=== PATIENT | male | born 1955 | race Caucasian/White ===

== ENCOUNTER 2016-10-16 10:52 | Emergency (ER) | payer SELFPAY ==
[~2016-10-16] VITALS: Wt 127.0 kg
[~2016-10-16 10:52] MED LIST: ALBUTEROL0.09 MG/A2 INH; ASPIRIN81 M1 PO; AUGMENTIN 875 M1 TA1 PO; AUGMENTIN XR1000 M1 PO; BACTRIM DS 8001 TA1 PO; CEFADROXIL500 M1 PO; CEPHALEXIN500 M1 PO; CEPHALEXIN500 MG PO; CIPROFLOXACIN500 MG PO; DIOVAN HCT 25 M1 TAB PO; DIOVAN160 M1 PO; DIOVAN320 MG PO; FLOMAX0.4 MG PO; HYDROCODONE BIT1 T11 PO; KEFLEX250 MG PO; KEFLEX500 MG PO; LEVAQUIN750 MG PO; METOPROLOL50 MG PO; NAPROSYN500 MG PO; NEXIUM40 MG PO; OMEPRAZOLE; OMEPRAZOLE20 MG PO; OMNICEF300 MG PO; PERCOCET 325 MG1 TA5 PO; PERCOCET 325 MG1 TA7 PO; PREDNICOT20 MG PO; PRILOSEC OTC20 MG PO; SIMVASTATIN80 MG PO; ULTRAM50 MG PO; VIBRAMYCIN100 MG PO; VICO10300 PO
[2016-10-16 11:17] LABS: BILIRUBIN NEGATIVE (NEGATIVE); BLOOD NEGATIVE (NEGATIVE); CLARITY CLEAR (CLEAR); COLOR YELLOW (YELLOW); GLUCOSE NEGATIVE (NEGATIVE); KETONE NEGATIVE (NEGATIVE); LEUKO ESTERASE NEGATIVE (NEGATIVE); NITRITE NEGATIVE (NEGATIVE); PH 5.5 (5.0-9.0); PROTEIN NEGATIVE (NEGATIVE); UROBILINOGEN 0.2 E.U./dl (0.2-1.0)
[2016-10-16 11:25] LABS: MUCOUS TRACE; URINE REFLEX COMMENT NO (NO); WBC 0-2 wbc/hpf (0-5)
[2016-10-16 11:26] LABS: EPITHELIAL CELLS 0-2
[2016-10-16 11:27] LABS: BASO % 0.3 % (0.0-1.0); EOS # 0.2 10*3/uL (0.0-0.4); EOS % 2.3 % (1.0-4.0); HEMATOCRIT 43.7 % (42.0-52.0); HEMOGLOBIN 13.6 g/dl (14.0-18.0); LYMPH # 1.1 10*3/uL (1.3-4.4); LYMPH % 17.2 % (27.0-41.0); MEAN CELL VOLUME 85.7 fl (80.0-94.0); MEAN CORPUSCULAR HGB 26.7 pg (27.0-31.0); MEAN CORPUSCULAR HGB CONC 31.1 g/dl (33.0-37.0); MEAN PLATELET VOLUME 10.4 fl (9.6-12.3); MONO # 0.6 10*3/uL (0.1-1.0); NEUT # 4.6 10*3/uL (2.3-7.9); NEUT % 70.7 % (47.0-73.0); PLATELET COUNT AUTOMATED 161 10*3/uL (130-400); WHITE BLOOD COUNT 6.5 10*3/uL (4.8-10.8)
[2016-10-16 11:41] LABS: ALBUMIN 3.3 gm/dl (3.1-4.5); ALKALINE PHOSPHATASE 65 U/L (45-117); BILIRUBIN, TOTAL 0.4 mg/dl (0.2-1.0); BUN 29 mg/dl (7-24); CARBON DIOXIDE 28 mmol/L (21-32); CHLORIDE 109 mmol/L (98-107); EST GLOM FILT AFRICAN AMERICAN > 60 ml/min; GLUCOSE 125 mg/dL (65-99); MAGNESIUM 1.9 mg/dL (1.5-2.1); POTASSIUM 4.6 mmol/L (3.5-5.1); SGOT/AST 20 IU/L (3-35); SGPT/ALT 21 U/L (12-78); SODIUM 143 mmol/L (136-145); TOTAL PROTEIN 6.9 gm/dL (6.4-8.2)
[2016-10-16 11:47] LABS: C-REACTIVE PROTEIN 1.23 MG/DL (0-0.3)
[2016-10-16 12:52] VITALS: BP 126/69
[2016-10-16] MEDS ORDERED: Motrin,Rufen800 MG PO (13:22)
[2016-10-16] MEDS ORDERED: FLOMAX0.4 MG PO (13:23)
== END 2016-10-16 13:27 | disposition home or self-care (01) ==
LOC: ED 10:52
PROVIDERS: Emergency Medicine
DX: N20.1 Calculus of ureter (principal); Z95.1 Presence of aortocoronary bypass graft; Z98.890 Other specified postprocedural states; Z90.49 Acquired absence of other specified parts of digestive tract; Z79.82 Long term (current) use of aspirin; Z79.899 Other long term (current) drug therapy; Z88.6 Allergy status to analgesic agent; Z88.5 Allergy status to narcotic agent

== ENCOUNTER → 2017-01-06 | Outpatient (CLI) | payer BC ==
[~2017-01-06] MED LIST changes: +DIOVAN80 M1 PO; +Motrin,Rufen800 MG PO; +SIMVASTATIN40 MG PO; -SIMVASTATIN80 MG PO
--- NOTE | ~2017-01-06 | ST ---
[place], [place] EXERCISE STRESS TEST REPORT [id number] UNIT #: [id number] ROOM: DOCTOR: JAVED FINNEGAN MD BIRTHDATE: [birth year] DOS: 01/06/2017 INDICATION: Chest pain. PROCEDURE: The patient was brought into the stress lab. The procedure was explained with risks, benefits, and alternatives. Lexiscan was injected. The patient tolerated the procedure well. BLOOD PRESSURE RESPONSE: Resting blood pressure 142/90 with ending blood pressure 118/82. ELECTROCARDIOGRAM INTERPRETATION: The resting electrocardiogram showed normal sinus rhythm, heart rate of 68. There is poor R progression, mild nonspecific ST-T changes. Following the infusion, there was no evidence of any significant ST or T-wave changes suggestive of myocardial ischemia. No arrhythmias were noted. SUMMARY: 1. Adequate Lexiscan stress test. 2. Negative Lexiscan stress test for stress induced myocardial ischemia. 3. No arrhythmia were noted. 4. Myoview results will be reported separately. JAVED FINNEGNA MD CM:STRESS:EXERCISE STRESS TEST REPORT [id number] JAVED FINNEGAN MD
== END | disposition home or self-care (01) ==
LOC: CARD 12-09 09:30
DX: I25.10 Atherosclerotic heart disease of native coronary artery without angina pectoris (principal); I11.9 Hypertensive heart disease without heart failure

== ENCOUNTER → 2017-01-26 | Outpatient (CLI) | payer BC | END | disposition home or self-care (01) | LOC: RAD 00:22 | DX: N20.0 Calculus of kidney (principal) ==

== ENCOUNTER 2017-06-03 13:50 | Emergency (ER) | payer BC ==
[~2017-06-03] VITALS: Ht 182.8 cm; Wt 131.5 kg
[2017-06-03 14:25] LABS: HEMATOCRIT 44.8 % (42.0-52.0); HEMOGLOBIN 13.8 g/dl (14.0-18.0); MEAN CELL VOLUME 88.5 fl (80.0-94.0); MEAN CORPUSCULAR HGB 27.3 pg (27.0-31.0); MEAN CORPUSCULAR HGB CONC 30.8 g/dl (33.0-37.0); MEAN PLATELET VOLUME 11.2 fl (9.6-12.3); PLATELET COUNT AUTOMATED 139 10*3/uL (130-400); RED BLOOD COUNT 5.06 10*6/uL (4.50-5.90); WHITE BLOOD COUNT 13.7 10*3/uL (4.8-10.8)
[2017-06-03 14:26] LABS: ABG BASE EXCESS -1.7 mmol/L (-2.0-2.0); ABG HCO3 25.9 mmol/l (22-26); ABG O2 SATURATION 93.4 % (95-97); ARTERIAL BLOOD GAS PCO2 59.4 mmHg (35-45); ARTERIAL BLOOD GAS PH 7.263 (7.35-7.45); ARTERIAL BLOOD GAS PO2 79.1 mmHg (80-90)
[2017-06-03 14:38] LABS: ACT PARTIAL THROMBO TIME 29.5 SECONDS (20.8-31.5); INTERNATIONAL NORM RATIO 1.1 (2.0-3.5)
[2017-06-03 14:41] LABS: ALBUMIN 2.7 gm/dl (3.1-4.5); CREATININE 3.42 mg/dL (0.70-1.30); POTASSIUM 4.4 mmol/L (3.5-5.1); TOTAL PROTEIN 7.5 gm/dL (6.4-8.2)
[2017-06-03 14:45] LABS: TROPONIN I 2.15 ng/ml (<0.045)
[2017-06-03 14:47] LABS: PLATELET SUFFICIENCY LOW (NORMAL); TOTAL CELLS COUNTED 100 #CELLS
[2017-06-03 14:51] LABS: POLYCHROMASIA SLIGHT
[2017-06-03 14:53] LABS: DOHLE BODIES FEW; VACUOLATION OF NEUTROPHILS SLIGHT
[2017-06-03 16:26] LABS: ABG BASE EXCESS -0.1 mmol/L (-2.0-2.0); ABG HCO3 26.5 mmol/l (22-26); ABG O2 SATURATION 94.8 % (95-97); ARTERIAL BLOOD GAS PH 7.3 (7.35-7.45); ARTERIAL BLOOD GAS PO2 83.3 mmHg (80-90)
[2017-06-03 18:07] LABS: ALBUMIN 2.3 gm/dl (3.1-4.5); BILIRUBIN, DIRECT 0.6 mg/dL (0.0-0.2); TOTAL PROTEIN 6.6 gm/dL (6.4-8.2)
[2017-06-03 18:17] LABS: TROPONIN I 3.23 ng/ml (<0.045)
[2017-06-03 18:34] LABS: CREATININE 3.07 mg/dL (0.70-1.30); POTASSIUM 4.4 mmol/L (3.5-5.1)
[2017-06-03 18:49] LABS: BILIRUBIN 2+ (NEGATIVE); BLOOD 2+ (NEGATIVE); CLARITY CLOUDY (CLEAR); COLOR YELLOW (YELLOW); GLUCOSE NEGATIVE (NEGATIVE); KETONE TRACE (NEGATIVE); LEUKO ESTERASE TRACE (NEGATIVE); NITRITE NEGATIVE (NEGATIVE); PH 5.5 (5.0-9.0); SPECIFIC GRAVITY 1.025 (1.005-1.030)
[2017-06-03 18:54] LABS: EPITHELIAL CELLS 0-2
[2017-06-03 18:55] LABS: BACTERIA 2+; CALCIUM OXALATE CRYSTALS TRACE; MUCOUS TRACE
[2017-06-03 19:38] LABS: INTERNATIONAL NORM RATIO 1.1 (2.0-3.5)
[2017-06-03 20:15] VITALS: BP 102/55
== END 2017-06-03 20:00 | disposition short-term general hospital (02) ==
LOC: ED 13:50
PROVIDERS: Emergency Medicine; Emergency Medicine Emergency Medical Services
DX: T39.1X2A Poisoning by 4-Aminophenol derivatives, intentional self-harm, initial encounter (principal); A41.9 Sepsis, unspecified organism; J18.9 Pneumonia, unspecified organism; R65.21 Severe sepsis with septic shock; J96.02 Acute respiratory failure with hypercapnia; I21.4 Non-ST elevation (NSTEMI) myocardial infarction; I50.9 Heart failure, unspecified; R74.0 Nonspecific elevation of levels of transaminase and lactic acid dehydrogenase [LDH]; I47.2 Ventricular tachycardia; N17.9 Acute kidney failure, unspecified; I25.10 Atherosclerotic heart disease of native coronary artery without angina pectoris; Z88.6 Allergy status to analgesic agent; Z79.899 Other long term (current) drug therapy; Z87.891 Personal history of nicotine dependence; Z79.82 Long term (current) use of aspirin; Y92.89 Other specified places as the place of occurrence of the external cause

== ENCOUNTER 2017-09-03 18:52 | Inpatient (IN) | payer SELFPAY ==
[2017-09-03] VITALS (7 sets, daily range): BP systolic 94–131; BP diastolic 50–64
[~2017-09-03] VITALS: Ht 182.9 cm; Wt 136.2 kg
--- NOTE | ~2017-09-03 | PR ---
[place], [place] PROGRESS NOTE NAME: KAREN CORBETT [facility] #: [id number] UNIT #: [id number] ROOM: 403 DOCTOR: VIKKI VILLALOBOS MD BIRTHDATE: [birth year] DOS: 09/05/2017 SUBJECTIVE: The patient was seen today at his bedside, 09/05/2017, for followup of a presyncopal episode. He is a 61-year-old man with a history of coronary artery disease and previous bypass surgery along with morbid obesity. He was recently hospitalized at the [facility] [place] in [place], [place] in May 2017 with pneumonia and acute heart failure. He has chronic ejection fraction was about 55%, but in the hospital it was noted to be about 35-40%. A subsequent stress test showed an inferoseptal myocardial infarction without ischemia. This was consistent with his known anatomy. It was felt that he should be treated medically. Since then, he had been doing well until this current presentation. He felt lightheaded after a meal and did note some palpitations. He was brought into the hospital where he did have a short run of wide complex tachycardia. We were asked to see him. He ruled out for myocardial infarction. An echocardiogram showed that his ejection fraction had improved to about 55% which is at his baseline. He still has stage 2 diastolic relaxation abnormalities, which are chronic. PHYSICAL EXAMINATION: VITAL SIGNS: Today, pulse is 69 and regular, blood pressure is 122/68. He is afebrile. He weighs 136.2 kg and has a body mass index of 40.7. HEENT: Normocephalic and atraumatic. Extraocular muscles are intact. Sclerae are clear. Pupils are equal, round and react to light. The oral mucosa is moist. Tongue is midline. NECK: Supple. He has no jugular distention. Carotids are full. I heard no bruits. He had no neck or supraclavicular masses. LUNGS: Respirations were unlabored. His chest was clear to auscultation and percussion. HEART: Had a regular rhythm with an S4 gallop, but no S3 or murmur. ABDOMEN: Obese. EXTREMITIES: Showed no edema. He seems to be doing well on his current dose of diuretics. Yesterday, I did decrease his dose from 40 mg of furosemide daily to 20 mg daily. I believe that his presyncope was likely due to dehydration. I think that his diuretic requirements had fallen because his left ventricular function had improved. Long-term, he will probably still need some loop diuretic because of his diastolic problems. LABORATORY DATA: Electrolytes today are satisfactory with sodium 141, potassium 4.3, BUN of 26 and creatinine of 1.34. On admission, BUN and creatinine were 41 and 1.59. I believe that he can go home and follow up with us in the office in 4-6 weeks. He should go home on the smaller dose of furosemide 20 mg daily. I thank the hospitalist physicians for asking our advice regarding his care. [place], [place] PROGRESS NOTE NAME: KAREN CORBETT [place] UNIT #: [id number] ROOM: 403 DOCTOR: VIKKI VILLALOBOS MD BIRTHDATE: [birth year] VKIKI VILLALOBOS MD CM:PNCAROLINE [id number] VIKKI VILLALOBOS MD 09/05/17 1211 interface
--- NOTE | ~2017-09-03 | CON ---
[place], [place] REPORT OF CONSULTATION NAME: KAREN CORBETT UNIT #: [id number] ROOM: 403 DOCTOR: VIKKI VILLALOBOS MD BIRTHDATE: [birth year] DOS: 09/04/2017 REASON FOR CONSULTATION: Near syncope. HISTORY OF PRESENT ILLNESS: The patient is a 61-year-old man who has a history of coronary artery disease with previous bypass surgery. He also has morbid obesity. He was recently hospitalized at [facility] in [place], [place] in May of 2017 with pneumonia and acute heart failure. His ejection fraction was noted to be impaired at about 40%. Previously, it had been over 55%. A subsequent stress test showed an inferoseptal myocardial infarction without ischemia and an ejection fraction of 39%. It was felt that he should be treated medically. Since then, the patient has been doing well. He was last seen in the office by Dr. Mandie Chou on 08/16/2017. He was showing no signs of heart failure. Vital signs were appropriate. No adjustment in his medications was made. He was well until yesterday. He had eaten his noon meal and helped to clean up afterwards. At that point, he felt lightheaded. He stated that he felt like he was going to pass out, although he did not lose consciousness or fall. He had his checked his blood pressure and it was 84/52. He continued to check his blood pressure intermittently and it was up and down, so he became concerned and came to the Emergency Room. Since he has been in the Emergency Room at hospital, he has had no further symptoms and now feels well. The patient denies any chest pain, but does state that he has some palpitations lately. He denies nausea or vomiting. He does have dyspnea with minor exertion. He denies any recent weight change. He states that he has been very careful recently with his salt intake, however, and has cut way back on the amount of sodium he consumes. PAST MEDICAL HISTORY: Includes: 1. Coronary artery disease. 2. Status post 3-vessel bypass in 2002 with saphenous vein graft to the obtuse marginal, saphenous vein graft to a right PDA and left internal mammary artery graft to the LAD. 3. Hypertension. 4. Cigarette abuse until 2002. The patient quit at the time of his bypass surgery. 5. Cardiac catheterization in 2007 showed occlusion of all qagan tayagungin coronary arteries. All three grafts were patent, but the right coronary artery was diffusely diseased. 6. Stress test 12/2012, inferior wall myocardial infarction without ischemia. Ejection fraction 58%. 7. Pharmacologic myocardial perfusion study 01/05/2015, inferior wall myocardial infarction with minimal eliana-infarction ischemia, ejection fraction 52%. 8. Pharmacologic stress test 06/10/2017, inferior fixed defect without ischemia. Ejection fraction 39%. 9. Echocardiogram 06/05/2017, mildly enlarged left ventricle with mild [place], [place] REPORT OF CONSULTATION NAME: KAREN CORBETT UNIT #: [id number] ROOM: 403 DOCTOR: VIKKI VILLALOBOS MD BIRTHDATE: [birth year] aneurysmal inferobasal wall. Ejection fraction 35-40%, stage 1 diastolic relaxation abnormalities, left atrial enlargement. Normal mitral valve structure and function. No pericardial effusion. CURRENT MEDICATIONS: Include aspirin 81 mg daily, atorvastatin 40 mg at bedtime, Nexium 40 mg daily, furosemide 40 mg daily, metoprolol 50 mg b.i.d. (succinate), spironolactone 25 mg daily and valsartan 320 mg daily. ALLERGIES: The patient lists an allergy to CODEINE. FAMILY HISTORY: The patient's father at age 46 from diabetes and heart disease. His mother at age 86 from coronary artery disease and diabetes. REVIEW OF SYSTEMS: The patient denies diplopia or loss of vision. He denies focal weakness. He denies syncope, although he has had lightheadedness. He denies any focal weakness. He denies nausea or vomiting. He denies any recent change in bowel or bladder habits. He does have occasional diarrhea, but nothing severe or persistent. He denies bleeding from bowels or urine. He denies hemoptysis or hematemesis. His appetite has been good. He denies any skin rashes. He denies heat or cold intolerance. He denies polyuria or polydipsia. He states that he has not had any recent ankle swelling. The remainder of the review of systems is negative except as noted above. 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 He is and lives with his . He has not smoked since 2002. PHYSICAL EXAMINATION: GENERAL: The patient is an overweight white male who is awake, alert and oriented. VITAL SIGNS: Pulse is 77 and regular, blood pressure is 125/48. There is no orthostatic blood pressure drop. He is afebrile. He weighs 136.2 kg and has a body mass index of 40.7. HEENT: Normocephalic and atraumatic. Extraocular muscles are intact. Sclerae are clear. Pupils are equal, round and react to light. The oral mucosa is moist. Tongue is midline. NECK: Supple. He has no jugular distention. Carotids are full. I could not hear any bruits. He had no neck or supraclavicular masses, no thyromegaly. LUNGS: Respirations are unlabored. His chest is clear to auscultation and percussion. He has no presacral edema or chest wall tenderness. CARDIOVASCULAR: His heart has a regular rhythm. He has a fourth heart sound, but no third heart sound or murmur. The PMI is not displaced. There is no precordial heave, lift or thrill. ABDOMEN: Obese, but otherwise benign, without masses, organomegaly or bruits. EXTREMITIES: Showed no edema. Peripheral pulses are diminished, but palpable in the feet. LABORATORY DATA: The electrocardiogram is not yet available for my review. school bus monitor showed sinus rhythm with a 10-beat run of nonsustained ventricular tachycardia recorded. Chest x-ray shows postsurgical changes. There is no evidence for infiltrate or heart failure. Hemoglobin is 11.6, [place], [place] REPORT OF CONSULTATION NAME: KAREN CORBETT UNIT #: [id number] ROOM: 403 DOCTOR: VIKKI VILLALOBOS MD BIRTHDATE: [birth year] hematocrit 36.8, there are 6000 white cells and 134,000 platelets present. Sodium is 142, potassium 4.6, chloride 109, CO2 26, BUN 41, creatinine 1.59. Serial troponin levels have been negative. Cholesterol is at 161, triglycerides 258, LDL 80, HDL 29. TSH 4.47. Carotid ultrasound study was done and showed a thyroid nodule which was previously known. He does have less than 50% stenoses in the carotids bilaterally. IMPRESSION: 1. Lightheadedness with near syncope. 2. Ischemic cardiomyopathy. 3. Nonsustained ventricular tachycardia. 4. History of coronary artery disease status post bypass surgery in 2002. Catheterization in 2007 showed occlusion of all qagan tayagungin epicardial vessels with patent grafts. The graft to the right coronary artery was probably ineffective as the vessel itself was diffusely diseased. 5. Most recent stress test in 05/2017 showed a previous inferior wall myocardial infarction without any ongoing ischemia. PLAN: We will review his echocardiogram. If it shows continued deterioration in left ventricular function despite adequate medical therapy, then he will require cardiac catheterization, especially in view of his nonsustained ventricular tachycardia. If left ventricular function is preserved or improving, then medical therapy will be appropriate. For now, I will be decreasing his diuretic therapy. We will continue to monitor him for another 24 hours in the hospital. I thank the hospitalist service for asking our advice regarding his care. VIKKI VILLALOBOS MD CM:CONSTR:REPORT OF CONSULTATION 1220 09/04/17 1320 interface
[~2017-09-03 18:52] MED LIST changes: -DIOVAN80 M1 PO; +LIPITOR40 MG PO; -SIMVASTATIN40 MG PO
[2017-09-03 19:57] LABS: BASO % 0.4 % (0.0-1.0); EOS # 0.1 10*3/uL (0.0-0.4); EOS % 1.2 % (1.0-4.0); HEMATOCRIT 41.9 % (42.0-52.0); HEMOGLOBIN 13.5 g/dl (14.0-18.0); LYMPH # 1.7 10*3/uL (1.3-4.4); LYMPH % 19.8 % (27.0-41.0); MEAN CELL VOLUME 85.3 fl (80.0-94.0); MEAN CORPUSCULAR HGB 27.5 pg (27.0-31.0); MEAN CORPUSCULAR HGB CONC 32.2 g/dl (33.0-37.0); MEAN PLATELET VOLUME 10.4 fl (9.6-12.3); MONO # 0.8 10*3/uL (0.1-1.0); MONO % 9.9 % (3.0-9.0); NEUT # 5.7 10*3/uL (2.3-7.9); PLATELET COUNT AUTOMATED 175 10*3/uL (130-400); RED BLOOD COUNT 4.91 10*6/uL (4.50-5.90); RED CELL DISTRI WIDTH 14.6 % (0-14.5); WHITE BLOOD COUNT 8.4 10*3/uL (4.8-10.8)
[2017-09-03 20:07] LABS: ACT PARTIAL THROMBO TIME 24.3 SECONDS (20.8-31.5); INTERNATIONAL NORM RATIO 0.9 (2.0-3.5)
[2017-09-03 20:13] LABS: ALBUMIN 3.4 gm/dl (3.1-4.5); ALKALINE PHOSPHATASE 71 U/L (45-117); BUN 40 mg/dl (7-24); CHLORIDE 104 mmol/L (98-107); CREATININE 1.94 mg/dL (0.70-1.30); LIPASE 258 U/L (73-393); SGOT/AST 27 IU/L (3-35); SGPT/ALT 21 U/L (12-78); SODIUM 137 mmol/L (136-145); TOTAL PROTEIN 7.4 gm/dL (6.4-8.2); TROPONIN I < 0.015 ng/ml (<0.045)
[2017-09-04] VITALS (7 sets, daily range): BP systolic 102–130; BP diastolic 42–66
[2017-09-04 06:24] LABS: ALBUMIN 2.7 gm/dl (3.1-4.5); BASO % 0.3 % (0.0-1.0); CREATININE 1.59 mg/dL (0.70-1.30); EOS # 0.2 10*3/uL (0.0-0.4); EOS % 2.5 % (1.0-4.0); HEMATOCRIT 36.8 % (42.0-52.0); HEMOGLOBIN 11.6 g/dl (14.0-18.0); LYMPH # 1.6 10*3/uL (1.3-4.4); MEAN CELL VOLUME 87.4 fl (80.0-94.0); MEAN CORPUSCULAR HGB 27.6 pg (27.0-31.0); MEAN CORPUSCULAR HGB CONC 31.5 g/dl (33.0-37.0); MEAN PLATELET VOLUME 10.5 fl (9.6-12.3); MONO # 0.7 10*3/uL (0.1-1.0); MONO % 10.9 % (3.0-9.0); NEUT # 3.6 10*3/uL (2.3-7.9); NEUT % 59.6 % (47.0-73.0); PHOSPHOROUS 4.4 mg/dL (2.5-4.9); PLATELET COUNT AUTOMATED 134 10*3/uL (130-400); POTASSIUM 4.6 mmol/L (3.5-5.1); RED BLOOD COUNT 4.21 10*6/uL (4.50-5.90); RED CELL DISTRI WIDTH 14.8 % (0-14.5)
[2017-09-04 06:30] LABS: THYROID STIM HORMONE (HS) 4.47 uIU/ml (0.358-4.75); TOTAL PROTEIN 5.9 gm/dL (6.4-8.2)
[2017-09-04 06:39] LABS: ACT PARTIAL THROMBO TIME 25.6 SECONDS (20.8-31.5)
[2017-09-04 07:37] LABS: VITAMIN D, 25-HYDROXY 14.9 ng/mL (30-100)
[2017-09-04] MEDS ORDERED: ALDACTONE25 M1 PO (10:21)
[2017-09-04] MEDS ORDERED: LASIX40 MG PO (10:21)
[2017-09-05 00:19] VITALS: BP 125/44
[2017-09-05 08:00] VITALS: BP 118/47
[2017-09-05 09:02] LABS: ALBUMIN 3.1 gm/dl (3.1-4.5); CHLORIDE 107 mmol/L (98-107); CREATININE 1.34 mg/dL (0.70-1.30); PHOSPHOROUS 2.7 mg/dL (2.5-4.9); POTASSIUM 4.3 mmol/L (3.5-5.1); SODIUM 141 mmol/L (136-145)
[2017-09-05 09:08] LABS: BUN 26 mg/dl (7-24)
[2017-09-05 09:50] VITALS: BP 122/68
[2017-09-05] MEDS ORDERED: TOPROL XL50 M1 PO (11:37)
[2017-09-05] MEDS ORDERED: LOSARTAN POTAS100 M1 PO (11:37)
[2017-09-05] MEDS ORDERED: FUROSEMIDE20 M1 PO (11:37)
[2017-09-05 11:49] VITALS: BP 123/64
== END 2017-09-05 12:33 | disposition home or self-care (01) | DRG 640 ==
LOC: ED 18:52 → 4E 21:23 → EDHOLD 21:23 → 4E 21:34
PROVIDERS: Hospitalist; Nurse Practitioner Family; Registered Nurse
DX: E86.0 Dehydration (principal); E43 Unspecified severe protein-calorie malnutrition; I13.0 Hypertensive heart and chronic kidney disease with heart failure and stage 1 through stage 4 chronic kidney disease, or unspecified chronic kidney disease; I95.9 Hypotension, unspecified; E83.51 Hypocalcemia; E66.01 Morbid (severe) obesity due to excess calories; I50.9 Heart failure, unspecified; Z68.41 Body mass index [BMI] 40.0-44.9, adult; N18.3 Chronic kidney disease, stage 3 (moderate); I25.5 Ischemic cardiomyopathy; I25.10 Atherosclerotic heart disease of native coronary artery without angina pectoris; E55.9 Vitamin D deficiency, unspecified; E78.00 Pure hypercholesterolemia, unspecified; K21.9 Gastro-esophageal reflux disease without esophagitis; E07.9 Disorder of thyroid, unspecified; Z88.5 Allergy status to narcotic agent; Z79.82 Long term (current) use of aspirin; Z79.84 Long term (current) use of oral hypoglycemic drugs; Z95.1 Presence of aortocoronary bypass graft; Z72.89 Other problems related to lifestyle; Z80.9 Family history of malignant neoplasm, unspecified; Z82.49 Family history of ischemic heart disease and other diseases of the circulatory system; Z83.3 Family history of diabetes mellitus; I25.2 Old myocardial infarction

== ENCOUNTER → 2017-09-25 | Outpatient (CLI) | payer SELFPAY ==
[~2017-09-25] MED LIST changes: +ALDACTONE25 M1 PO; +FUROSEMIDE20 M1 PO; +LASIX40 MG PO; +LOSARTAN POTAS100 M1 PO; +TOPROL XL50 M1 PO
== END | disposition home or self-care (01) ==
LOC: RESCLI 01:50
DX: I11.0 Hypertensive heart disease with heart failure (principal); I50.9 Heart failure, unspecified; E78.5 Hyperlipidemia, unspecified; K21.9 Gastro-esophageal reflux disease without esophagitis; I25.10 Atherosclerotic heart disease of native coronary artery without angina pectoris; E66.01 Morbid (severe) obesity due to excess calories

== ENCOUNTER 2017-11-06 15:07 | Inpatient (IN) | payer SELFPAY ==
[~2017-11-06] VITALS: Ht 182.9 cm; Wt 144.0 kg
[2017-11-06] VITALS (7 sets, daily range): BP systolic 109–160; BP diastolic 47–85
[2017-11-06 15:33] LABS: BASO % 0.6 % (0.0-1.0); EOS # 0.3 10*3/uL (0.0-0.4); EOS % 4.3 % (1.0-4.0); HEMATOCRIT 45.5 % (42.0-52.0); HEMOGLOBIN 13.8 g/dl (14.0-18.0); LYMPH # 1.7 10*3/uL (1.3-4.4); LYMPH % 25.3 % (27.0-41.0); MEAN CELL VOLUME 89.2 fl (80.0-94.0); MEAN CORPUSCULAR HGB 27.1 pg (27.0-31.0); MEAN CORPUSCULAR HGB CONC 30.3 g/dl (33.0-37.0); MEAN PLATELET VOLUME 10.7 fl (9.6-12.3); MONO # 0.6 10*3/uL (0.1-1.0); MONO % 8.7 % (3.0-9.0); NEUT % 60.5 % (47.0-73.0); PLATELET COUNT AUTOMATED 157 10*3/uL (130-400); RED CELL DISTRI WIDTH 14.2 % (0-14.5); WHITE BLOOD COUNT 6.6 10*3/uL (4.8-10.8)
[2017-11-06 15:43] LABS: ACT PARTIAL THROMBO TIME 23.7 SECONDS (20.8-31.5)
[2017-11-06 15:52] LABS: ALBUMIN 3.3 gm/dl (3.1-4.5); ALKALINE PHOSPHATASE 71 U/L (45-117); BUN 23 mg/dl (7-24); CHLORIDE 102 mmol/L (98-107); CREATININE 1.52 mg/dL (0.70-1.30); POTASSIUM 3.9 mmol/L (3.5-5.1); SGOT/AST 25 IU/L (3-35); SGPT/ALT 22 U/L (12-78); SODIUM 142 mmol/L (136-145); TOTAL PROTEIN 7.1 gm/dL (6.4-8.2)
[2017-11-06 15:54] LABS: TROPONIN I < 0.015 ng/ml (<0.045)
[2017-11-07] VITALS: BP 110/55
[2017-11-07 06:21] LABS: HEMATOCRIT 43.6 % (42.0-52.0); HEMOGLOBIN 12.8 g/dl (14.0-18.0); MEAN CELL VOLUME 91.8 fl (80.0-94.0); MEAN CORPUSCULAR HGB 26.9 pg (27.0-31.0); MEAN CORPUSCULAR HGB CONC 29.4 g/dl (33.0-37.0); MEAN PLATELET VOLUME 10.7 fl (9.6-12.3); PLATELET COUNT AUTOMATED 138 10*3/uL (130-400); RED BLOOD COUNT 4.75 10*6/uL (4.50-5.90); RED CELL DISTRI WIDTH 13.9 % (0-14.5); WHITE BLOOD COUNT 9.1 10*3/uL (4.8-10.8)
[2017-11-07 06:40] LABS: ALBUMIN 2.9 gm/dl (3.1-4.5); ALKALINE PHOSPHATASE 59 U/L (45-117); BUN 21 mg/dl (7-24); CHLORIDE 104 mmol/L (98-107); CHOLESTEROL 131 mg/dL (<200); CREATININE 1.33 mg/dL (0.70-1.30); HDL CHOLESTEROL 45 mg/dl (40-60); LDL CHOLESTEROL 71 mg/dL (9-159); PHOSPHOROUS 3.4 mg/dL (2.5-4.9); POTASSIUM 4.7 mmol/L (3.5-5.1); SGOT/AST 13 IU/L (3-35); SGPT/ALT 23 U/L (12-78); SODIUM 142 mmol/L (136-145); TOTAL PROTEIN 6.5 gm/dL (6.4-8.2); TRIGLYCERIDES 77 mg/dl (<150); VLDL CHOLESTEROL 15 mg/dL (6-40)
[2017-11-07 07:01] LABS: PLATELET SUFFICIENCY NORMAL (NORMAL); TOTAL CELLS COUNTED 100 #CELLS
[2017-11-07 07:30] LABS: THYROID STIM HORMONE (HS) 0.373 uIU/ml (0.358-4.75)
[2017-11-07 08:00] VITALS: BP 146/58
[2017-11-07 08:12] LABS: VITAMIN D, 25-HYDROXY 27.7 ng/mL (30-100)
[2017-11-07 11:46] VITALS: BP 100/46
[2017-11-07 15:45] VITALS: BP 125/47
[2017-11-07 20:00] VITALS: BP 116/59
[2017-11-08 07:04] LABS: ALBUMIN 2.8 gm/dl (3.1-4.5); ALKALINE PHOSPHATASE 56 U/L (45-117); BUN 24 mg/dl (7-24); CHLORIDE 107 mmol/L (98-107); CREATININE 1.15 mg/dL (0.70-1.30); POTASSIUM 5.1 mmol/L (3.5-5.1); SGOT/AST 17 IU/L (3-35); SGPT/ALT 22 U/L (12-78); SODIUM 142 mmol/L (136-145); TOTAL PROTEIN 6.2 gm/dL (6.4-8.2)
[2017-11-08 07:12] LABS: BASO % 0.1 % (0.0-1.0); HEMATOCRIT 41.2 % (42.0-52.0); HEMOGLOBIN 12.3 g/dl (14.0-18.0); LYMPH # 0.6 10*3/uL (1.3-4.4); LYMPH % 4.3 % (27.0-41.0); MEAN CELL VOLUME 91.6 fl (80.0-94.0); MEAN CORPUSCULAR HGB 27.3 pg (27.0-31.0); MEAN CORPUSCULAR HGB CONC 29.9 g/dl (33.0-37.0); MONO # 0.9 10*3/uL (0.1-1.0); MONO % 6.1 % (3.0-9.0); NEUT # 12.7 10*3/uL (2.3-7.9); NEUT % 88.2 % (47.0-73.0); PLATELET COUNT AUTOMATED 126 10*3/uL (130-400); RED CELL DISTRI WIDTH 14.2 % (0-14.5); WHITE BLOOD COUNT 14.3 10*3/uL (4.8-10.8)
[2017-11-08 08:00] VITALS: BP 129/57
[2017-11-08 12:00] VITALS: BP 122/51
[2017-11-08 15:48] VITALS: BP 142/61
[2017-11-08 20:00] VITALS: BP 132/50
[2017-11-09] VITALS: BP 114/52
[2017-11-09 06:25] LABS: HEMATOCRIT 43.4 % (42.0-52.0); HEMOGLOBIN 12.8 g/dl (14.0-18.0); MEAN CORPUSCULAR HGB 26.6 pg (27.0-31.0); MEAN CORPUSCULAR HGB CONC 29.5 g/dl (33.0-37.0); MEAN PLATELET VOLUME 11.1 fl (9.6-12.3); PLATELET COUNT AUTOMATED 139 10*3/uL (130-400); RED BLOOD COUNT 4.82 10*6/uL (4.50-5.90); RED CELL DISTRI WIDTH 14.3 % (0-14.5); WHITE BLOOD COUNT 15.2 10*3/uL (4.8-10.8)
[2017-11-09 06:53] LABS: PLATELET SUFFICIENCY NORMAL (NORMAL); TOTAL CELLS COUNTED 100 #CELLS
[2017-11-09 08:00] VITALS: BP 120/88
[2017-11-09 12:00] VITALS: BP 136/62
[2017-11-09 16:00] VITALS: BP 130/61
[2017-11-09 20:00] VITALS: BP 151/75
[2017-11-10] VITALS: BP 157/71
[2017-11-10 08:00] VITALS: BP 132/62
[2017-11-10] MEDS ORDERED: PREDNISONE10 MG PO (10:38)
[2017-11-10] MEDS ORDERED: ZITHROMAX250 MG PO (10:38)
== END 2017-11-10 11:32 | disposition home or self-care (01) | DRG 871 ==
LOC: ED 15:07 → 5E 18:08 → EDHOLD 18:08 → 5E 18:22
PROVIDERS: Internal Medicine Hospice and Palliative Medicine; Nurse Practitioner Family
DX: A41.9 Sepsis, unspecified organism (principal); J18.9 Pneumonia, unspecified organism; N17.0 Acute kidney failure with tubular necrosis; I26.99 Other pulmonary embolism without acute cor pulmonale; E87.3 Alkalosis; I13.0 Hypertensive heart and chronic kidney disease with heart failure and stage 1 through stage 4 chronic kidney disease, or unspecified chronic kidney disease; D69.6 Thrombocytopenia, unspecified; E44.1 Mild protein-calorie malnutrition; I50.32 Chronic diastolic (congestive) heart failure; I25.810 Atherosclerosis of coronary artery bypass graft(s) without angina pectoris; J45.901 Unspecified asthma with (acute) exacerbation; N18.3 Chronic kidney disease, stage 3 (moderate); E66.01 Morbid (severe) obesity due to excess calories; D64.9 Anemia, unspecified; R73.9 Hyperglycemia, unspecified; E78.00 Pure hypercholesterolemia, unspecified; K21.9 Gastro-esophageal reflux disease without esophagitis; E83.51 Hypocalcemia; Z88.5 Allergy status to narcotic agent; Z79.82 Long term (current) use of aspirin; I25.2 Old myocardial infarction; Z87.01 Personal history of pneumonia (recurrent); Z95.1 Presence of aortocoronary bypass graft; Z83.3 Family history of diabetes mellitus; Z82.49 Family history of ischemic heart disease and other diseases of the circulatory system; Z80.9 Family history of malignant neoplasm, unspecified; Z90.49 Acquired absence of other specified parts of digestive tract

== ENCOUNTER → 2017-11-22 | Outpatient (CLI) | payer SELFPAY ==
[~2017-11-22] MED LIST changes: +PREDNISONE10 MG PO; +ZITHROMAX250 MG PO
== END | disposition home or self-care (01) ==
LOC: RESCLI 03:09
DX: I11.0 Hypertensive heart disease with heart failure (principal); I50.9 Heart failure, unspecified; K21.9 Gastro-esophageal reflux disease without esophagitis; E78.00 Pure hypercholesterolemia, unspecified; E66.9 Obesity, unspecified; E66.01 Morbid (severe) obesity due to excess calories; J18.9 Pneumonia, unspecified organism; Z88.8 Allergy status to other drugs, medicaments and biological substances

== ENCOUNTER → 2018-02-27 | Outpatient (CLI) | payer SELFPAY | END | disposition home or self-care (01) | LOC: RESCLI 04:17 | DX: E78.00 Pure hypercholesterolemia, unspecified (principal); I11.0 Hypertensive heart disease with heart failure; I50.32 Chronic diastolic (congestive) heart failure; E66.01 Morbid (severe) obesity due to excess calories; I25.10 Atherosclerotic heart disease of native coronary artery without angina pectoris; K21.9 Gastro-esophageal reflux disease without esophagitis; M17.0 Bilateral primary osteoarthritis of knee; N62 Hypertrophy of breast; Z79.899 Other long term (current) drug therapy; Z87.891 Personal history of nicotine dependence ==

== ENCOUNTER 2018-09-07 12:17 | Inpatient (IN) | payer SELFPAY ==
[~2018-09-07] VITALS: Ht 182.9 cm; Wt 147.6 kg
--- NOTE | ~2018-09-07 | ST ---
[place], [place] EXERCISE STRESS TEST REPORT [id number] UNIT #: [id number] ROOM: 406 DOCTOR: BHUMI VILLALOBOS MD BIRTHDATE: [birth year] DOS: 09/10/2018 LEXISCAN STRESS EKG REFERRING PHYSICIAN: Dr. Kenney. INDICATION: Central chest pain, elevated troponin. The patient underwent standard protocol Lexiscan stress EKG. The patient's baseline EKG is normal sinus with anterior septal Q-waves, otherwise nonspecific changes. The patient's baseline heart rates are 65 with a blood pressure of 120/82. The patient's peak heart rate was 97 with a blood pressure of 116/80. The patient had no ischemic changes, no chest pain and no arrhythmias. SUMMARY OF FINDINGS: Unremarkable Lexiscan stress EKG. Please see separate report for perfusion scan imaging results. BHUMI VILLALOBOS MD CM:STRESS:EXERCISE STRESS TEST REPORT [id number] BHUMI VILLALOBOS MD
--- NOTE | ~2018-09-07 | EKG ---
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
--- NOTE | ~2018-09-07 | EKG ---
[place], [place] ELECTROCARDIOGRAM REPORT NAME: KAREN CORBETT UNIT #: [id number] ROOM: 406 DOCTOR: LYNDSAY DRAFT REPORT BIRTHDATE: [birth year] [facility] Test Date: 2018-09-07 Test Time: 15:10:41 Pat Name: KAREN CORBETT Department: Room: 406 Gender: M Editor News: Radha Mccoy : 1955 Requested By: BERTA MCELROY Order Number: [id number] Reading MD: Mandie Chou MD Measurements Intervals [place] Rate: 71 P: 19 MI: 221 QRS: 56 QRSD: 126 T: 266 QT: 386 QTc: 420 Interpretive Statements Sinus rhythm Prolonged MI interval Nonspecific intraventricular conduction delay Borderline repolarization abnormality Electronically Signed On 09-10-2018 10:01:54 PDT by Mandie Chou MD CM:EKGRPT:ELECTROCARDIOGRAM REPORT 1510 1001 BERTA UMANA DRAFT REPORT BERTA MCELROY MD
--- NOTE | ~2018-09-07 | EKG ---
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
[2018-09-07 12:18] VITALS: BP 133/82
[2018-09-07 12:44] LABS: BASO % 0.5 % (0.0-1.0); EOS # 0.2 10*3/uL (0.0-0.4); EOS % 2.7 % (1.0-4.0); HEMATOCRIT 49.5 % (42.0-52.0); HEMOGLOBIN 15.1 g/dl (14.0-18.0); LYMPH # 1.5 10*3/uL (1.3-4.4); LYMPH % 25.3 % (27.0-41.0); MEAN CELL VOLUME 87.3 fl (80.0-94.0); MEAN CORPUSCULAR HGB 26.6 pg (27.0-31.0); MEAN CORPUSCULAR HGB CONC 30.5 g/dl (33.0-37.0); MEAN PLATELET VOLUME 10.6 fl (9.6-12.3); MONO # 0.6 10*3/uL (0.1-1.0); MONO % 9.8 % (3.0-9.0); NEUT # 3.6 10*3/uL (2.3-7.9); NEUT % 60.9 % (47.0-73.0); PLATELET COUNT AUTOMATED 149 10*3/uL (130-400); RED BLOOD COUNT 5.67 10*6/uL (4.50-5.90); RED CELL DISTRI WIDTH 16.1 % (0-14.5); WHITE BLOOD COUNT 5.9 10*3/uL (4.8-10.8)
[2018-09-07 12:54] LABS: INTERNATIONAL NORM RATIO 0.9 (2.0-3.5)
[2018-09-07 13:10] VITALS: BP 130/80
[2018-09-07 13:35] LABS: ALKALINE PHOSPHATASE 65 U/L (45-117); BUN 29 mg/dl (7-24); CHLORIDE 103 mmol/L (98-107); CREATININE 1.32 mg/dL (0.70-1.30); POTASSIUM 4.3 mmol/L (3.5-5.1); SGOT/AST 15 IU/L (3-35); SGPT/ALT 14 U/L (12-78); SODIUM 139 mmol/L (136-145); TOTAL PROTEIN 6.8 gm/dL (6.4-8.2)
[2018-09-07 13:38] LABS: TROPONIN I 0.267 ng/ml (<0.045)
[2018-09-07 14:00] VITALS: BP 141/73
--- NOTE | 2018-09-07 14:00 | NUR ---
A 62, admitted to , under the services of MARY Carlisle DO with a diagnosis of COPD EXACERBATION. Chief complaint is SHORT OF BREATH,COUGH. Patient arrived via stretcher from ER. Monitor applied. Initial assessment completed. Vital signs taken and recorded. MARY CARLISLE DO notified of admission to the unit. Orders received. See assessment for past medical history, medications and allergies. Patient and/or family oriented to unit. [facility] visitation policy reviewed. Clothing/patient valuable form completed. MEMO BECERRIL
[2018-09-07 16:00] VITALS: BP 128/58
[2018-09-07 20:00] VITALS: BP 142/69
--- NOTE | 2018-09-07 20:00 | NUR ---
AAOX3 RESTING IN BED WITH HOB SLIGHTLY ELEVATED. HEP LOCK INTACT TO LEFT ANTECUBITAL; SITE ASYMPTOMATIC. LUNGS DIMINISHED BILATERALLY WITH NO COUGH NOTED AT THIS TIME. 02 INTACT AT 3LPM VIA NASAL CANNULA; PULSE OX 95%. PT. VOICES NO C/O AT THIS TIME. CALL LIGHT WITHIN REACH.
--- NOTE | 2018-09-07 22:00 | NUR ---
TOOK PO MEDICATIONS WITHOUT DIFFICULTY. 02 BEING MAINTAINED. PT. VOICES NO C/O AT THIS TIME. CALL LIGHT WITHIN REACH.
[2018-09-08] VITALS: BP 139/84
--- NOTE | 2018-09-08 00:30 | NUR ---
FIELD MARKETING TEAM LEADER CALLED; PT'S HEART RATE ELEVATED IN THE 120'S. PT. WAS UP TO THE BATHROOM & HAD HIS 02 OFF. PT. VOICES NO C/O AT THIS TIME; NO DISTRESS NOTED. REAPPLYING O2.
[2018-09-08 05:57] LABS: HEMATOCRIT 47.4 % (42.0-52.0); HEMOGLOBIN 14.2 g/dl (14.0-18.0); MEAN CELL VOLUME 88.6 fl (80.0-94.0); MEAN CORPUSCULAR HGB 26.5 pg (27.0-31.0); MEAN PLATELET VOLUME 10.8 fl (9.6-12.3); PLATELET COUNT AUTOMATED 154 10*3/uL (130-400); RED BLOOD COUNT 5.35 10*6/uL (4.50-5.90); RED CELL DISTRI WIDTH 15.8 % (0-14.5)
--- NOTE | 2018-09-08 06:00 | NUR ---
TOOK MEDICATIONS WITHOUT DIFFICULTY. VOICES NO C/O AT THIS TIME. BED IN LOW POSITION. CALL LIGHT WITHIN REACH.
[2018-09-08 06:05] LABS: BUN 28 mg/dl (7-24); CHLORIDE 102 mmol/L (98-107); CHOLESTEROL 155 mg/dL (<200); FREE T4 0.82 ng/dl (0.76-1.46); HDL CHOLESTEROL 48 mg/dl (40-60); LDL CHOLESTEROL 90 mg/dL (9-159); PHOSPHOROUS 3.5 mg/dL (2.5-4.9); SODIUM 139 mmol/L (136-145); TRIGLYCERIDES 87 mg/dl (<150); VLDL CHOLESTEROL 17 mg/dL (6-40)
[2018-09-08 06:14] LABS: CREATININE 1.39 mg/dL (0.70-1.30); THYROID STIM HORMONE (HS) 0.491 uIU/ml (0.358-4.75)
[2018-09-08 06:26] LABS: BURR CELLS FEW; PLATELET SUFFICIENCY NORMAL (NORMAL); TOTAL CELLS COUNTED 100 #CELLS
[2018-09-08 08:00] VITALS: BP 128/70
[2018-09-08 12:00] VITALS: BP 120/54
--- NOTE | 2018-09-08 18:28 | NUR ---
PATIENT COMPLAINT OF HEADACHE REQUESTING TYLENOL AT THIS TIME. PT RATES IT 6 ON 1-10 SCALE
[2018-09-08 20:00] VITALS: BP 108/50
--- NOTE | 2018-09-08 20:00 | NUR ---
AAOX3 RESTING INBED. HEP LOCK INTACT TO LEFT ARM; SITE ASYMPTOMATIC. LUNGS VERY DIMINISHED WITH WHEEZES & A DRY HACKY COUGH NOTED. ABDOMEN OBESE WITH NORMOACTIVE BOWEL SOUNDS. BM TODAY; VOIDING WITHOUT DIFFICULTY. NO EDEMA NOTED. PULSE OX 93 ON 3LPM VIA NASAL CANNULA. PT. VOICES NO C/O AT THIS TIME. CALL LIGHT WITHIN REACH.
--- NOTE | 2018-09-08 22:00 | NUR ---
RESTING IN BED WITH EYES CLOSED; CALL LIGHT WITHIN REACH.
[2018-09-09] VITALS: BP 122/55
--- NOTE | 2018-09-09 04:00 | NUR ---
RESTING IN ROOM WITH EYES CLOSED. 02 REMAINS INTACT. BED IN LOW POSITION. CALL LIGHT WITHIN REACH.
--- NOTE | 2018-09-09 06:00 | NUR ---
AROUSES EASILY FOR MEDICATIONS. 02 REMAINS INTACT. NO DISTRESS NOTED. CALL LIGHT WITHIN REACH.
[2018-09-09 06:07] LABS: BUN 34 mg/dl (7-24); CHLORIDE 104 mmol/L (98-107); CREATININE 1.25 mg/dL (0.70-1.30); POTASSIUM 5.6 mmol/L (3.5-5.1); SODIUM 139 mmol/L (136-145)
--- NOTE | 2018-09-09 06:40 | NUR ---
CALLED DR. RASMUSSEN WITH PT'S ELEVATED k+ OF 5.6
[2018-09-09 08:00] VITALS: BP 122/54
[2018-09-09 12:00] VITALS: BP 100/41
[2018-09-09 16:00] VITALS: BP 124/58
--- NOTE | 2018-09-09 19:26 | NUR ---
DR RASMUSSEN AWARE OF LEFT EAR BLEEDING. PATIENT DENIES ANY PAIN OR HEADACHE. PATIENT STATES HE TRIED CLEANING HIS EAR WITH A Q-TIP BUT STATES HE DOES NOT THINK HE PUT THE Q-TIP IN TOO FAR. BLOOD CLEANING. WILL MONITOR.
[2018-09-09 20:00] VITALS: BP 124/61
--- NOTE | 2018-09-09 21:10 | NUR ---
DR RASMUSSEN AWARE OF PATIENT'S EAR STILL BLEEDING. STATES TO SIT THE PATIENT UPRIGHT AND PLACE A COTTON BALL IN THE EAR AND RECHECK FOR BLEEDING IN AN HOUR. PATIENT DENIES PAIN
--- NOTE | 2018-09-09 21:15 | NUR ---
COTTON BALL PLACED IN LEFT EAR. PATIENT ENCOURAGED TO SIT UPRIGHT. VERBALIZED UNDERSTANDING
--- NOTE | 2018-09-09 22:22 | NUR ---
BLOOD NOTED ON COTTON BALL THAT WAS IN THE LEFT EAR. SCANT BLOOD ALSO NOTED ON PILLOW CASE. NEW COTTON BALL PLACED. PATIENT DENIES PAIN OR HEADACHE. DR RASMUSSEN MADE AWARE. WILL MONITOR
--- NOTE | 2018-09-09 23:03 | NUR ---
24 HR chart check completed.
[2018-09-10] VITALS: BP 122/40
--- NOTE | 2018-09-10 00:51 | NUR ---
7 BEAT RUN OF VTACH PER MONITOR. PATIENT RESTING IN BED WATCHING TV. DENIES CHEST PAIN, PRESSURE, OR SHORTNESS OF BREATH. WILL MONITOR
--- NOTE | 2018-09-10 00:54 | NUR ---
DR RASMUSSEN AWARE OF 7 BEAT RUN OF VTACH
[2018-09-10 06:23] LABS: ALBUMIN 2.9 gm/dl (3.1-4.5); BUN 32 mg/dl (7-24); CHLORIDE 104 mmol/L (98-107); CREATININE 1.17 mg/dL (0.70-1.30); PHOSPHOROUS 4.3 mg/dL (2.5-4.9); POTASSIUM 5.5 mmol/L (3.5-5.1); SODIUM 140 mmol/L (136-145)
[2018-09-10 08:00] VITALS: BP 118/50
--- NOTE | 2018-09-10 09:30 | NUR ---
Transaction Processor in to talk to patient. Patient states lives at home with . There are few steps in the home. Physician: [facility] Pharmacy: [facility] Home health services: none Patient's level of ADLs: INDEPENDENT Patient has working utilities: all working DME: none Follow-up physician's appointment after d/c: will be made by hospitalist nurse director upon discharge Does patient want to access PORTAL?: no Discharge plan discussed with patient, patient lives at home with , he states he is independent in adls and ambulation, patient states he will be going back home when able and denied any home needs, discussed with patient not having any insurance, patient stated his medicare will be effective in October of this year, until then he has no insurance. educate him that Laura from [facility] would be seeing him and help him fill out paperwork to help with the hospital stay. patient verbalized understand, no other needs at this time. NESTOR PENN
--- NOTE | 2018-09-10 11:47 | NUR ---
INFORMED SIGNED CONSENT OBTAINED FOR LEXISCAN STRESS TEST WITH DR VILLALOBOS. RESTING EKG LBBB HR 65 BP 120/82. PUSLE OX 92% ON 3L. PT COMPLETED ONE MINUTE OF A LEXISCAN PROTOCOL WITH PT RECEIVING LEXISCAN 0.4MG IV OVER 10 SECONDS. PVC NOTED. NONDIAGNOSITIC ST CHANGES SEEN. PT C/O SOB WITH INJECTION. LAST RECOVERY HR OF 81 BP 120/76, PT IN STABLE CONDITION, AWAITING NUCLEAR IMAGES.
[2018-09-10 12:00] VITALS: BP 159/72
--- NOTE | 2018-09-10 15:20 | NUR ---
ECHO BEING DONE AT THIS TIME.
[2018-09-10 16:00] VITALS: BP 116/49
--- NOTE | 2018-09-10 18:30 | NUR ---
MEDICATED WITH TYLENOL PER PRN ORDER FOR COMPLAINTS OF HEADACHE. WILL MONITOR FOR EFFECTIVENESS.
--- NOTE | 2018-09-10 18:30 | NUR ---
IV SITE LEAKING IN LEFT ARM, NEW IV ESTABLISHED #20G IN LEFT AC.
[2018-09-10 20:00] VITALS: BP 101/51
--- NOTE | 2018-09-10 23:30 | NUR ---
24 HR chart check completed.
[2018-09-11] VITALS: BP 141/72
--- NOTE | 2018-09-11 00:56 | NUR ---
PATIENT RESTING IN BED WITH NO S/S OF DISTRESS. RESPS EASY AND REGULAR. BED IN LOWEST POSITION, CALL LIGHT IN REACH
[2018-09-11 07:07] LABS: BUN 33 mg/dl (7-24); CHLORIDE 102 mmol/L (98-107); POTASSIUM 5.2 mmol/L (3.5-5.1); SODIUM 139 mmol/L (136-145)
[2018-09-11 07:08] LABS: CREATININE 1.14 mg/dL (0.70-1.30)
[2018-09-11 08:00] VITALS: BP 130/72; BP 140/78
--- NOTE | 2018-09-11 09:00 | NUR ---
case management visits with patient, patient states he will be going home when able and denies any home needs
[2018-09-11 12:00] VITALS: BP 115/46
--- NOTE | 2018-09-11 14:30 | NUR ---
PT WALKED WITH RESPIRATORY IN [place], PT REQUIRED O2 WITH ANY AMBULATION, PT REQUIRED 3L NC.
[2018-09-11 16:00] VITALS: BP 103/55
[2018-09-11 16:42] VITALS: BP 107/69
[2018-09-11 20:00] VITALS: BP 115/56
[2018-09-12] VITALS: BP 111/50
--- NOTE | 2018-09-12 04:11 | NUR ---
PATIENT SLEEPING IN BED AT THIS TIME. RESPIRATIONS EASY. NO S/S OF DISTRESS NOTED. WILL MONITOR. O2 IN USE VIA 3L NC. CALL LIGHT IN REACH
[2018-09-12 07:04] LABS: HEMATOCRIT 45.8 % (42.0-52.0); HEMOGLOBIN 13.5 g/dl (14.0-18.0); MEAN CELL VOLUME 90.2 fl (80.0-94.0); MEAN CORPUSCULAR HGB 26.6 pg (27.0-31.0); MEAN CORPUSCULAR HGB CONC 29.5 g/dl (33.0-37.0); NUCLEATED RED BLOOD CELL 0.3 % (0.0-0.0); PLATELET COUNT AUTOMATED 118 10*3/uL (130-400); RED BLOOD COUNT 5.08 10*6/uL (4.50-5.90); RED CELL DISTRI WIDTH 15.9 % (0-14.5); WHITE BLOOD COUNT 9.6 10*3/uL (4.8-10.8)
[2018-09-12 07:34] LABS: ALBUMIN 2.8 gm/dl (3.1-4.5); ALKALINE PHOSPHATASE 50 U/L (45-117); BUN 35 mg/dl (7-24); CHLORIDE 102 mmol/L (98-107); CREATININE 1.18 mg/dL (0.70-1.30); POTASSIUM 4.8 mmol/L (3.5-5.1); SGOT/AST 56 IU/L (3-35); SGPT/ALT 93 U/L (12-78); SODIUM 141 mmol/L (136-145)
[2018-09-12 07:45] LABS: ATYPICAL LYMPHS 2 % (0-0); TOTAL CELLS COUNTED 100 #CELLS
[2018-09-12 07:46] VITALS: BP 108/68
[2018-09-12 07:47] LABS: PLATELET SUFFICIENCY LOW (NORMAL)
--- NOTE | 2018-09-12 09:00 | NUR ---
case management visits with patient, educated him on events if he were to qualify for home oxygen, educated him that the hosptial may be able to pay for the first month of oxygen and he would be responsible for the next months. also educated him that the DME companies have forms to fill out according to income [facility] the [facility], educated him that if he qualified for oxygen the DME company would discuss this with him, no other needs at this time
--- NOTE | 2018-09-12 09:30 | NUR ---
PT AMBULATING IN HALLWAY WITH RESPIRATORY AT THIS TIME TO ASSESS FOR HOME 02.
--- NOTE | 2018-09-12 10:03 | NUR ---
PATIENT WAS TESTED FOR THE USE OF HOME OXYGEN. AT REST ON ROOM AIR: SPO2:88% HEART RATE:98 BPM RESPIRATORY RATE:22 BLOOD PRESSURE:141/56 DURING AMBULATION PATIENT WAS PLACE ON 2L NASAL CANNULA BEFORE START OF TEST, AND WAS ABLE TO GET 92%. ONCE HE STARTED WALKING HE WOULD DESATURATE TO 87-88%. PATIENT WAS TAKEN TO 3L NASAL CANNULA.WHERE HE WAS ABLE TO MAINTAIN 90-92% DURING THE AMBULATION. PATIENT DOES QUALIFY FOR HOME OXYGEN.
[2018-09-12 12:00] VITALS: BP 112/58
[2018-09-12] MEDS ORDERED: IMDUR SA30 MG PO (12:47)
[2018-09-12] MEDS ORDERED: LOSARTAN POTASS50 M1 PO (12:47)
[2018-09-12] MEDS ORDERED: ATORVASTATIN CA40 M1 PO (12:47)
[2018-09-12] MEDS ORDERED: ZITHROMAX500 MG PO (12:47)
[2018-09-12] MEDS ORDERED: FUROSEMIDE20 M1 PO (12:47)
[2018-09-12] MEDS ORDERED: METOPROLOL SUCC50 M1 PO (12:47)
[2018-09-12] MEDS ORDERED: PREDNISONE10 MG PO (12:47)
--- NOTE | 2018-09-12 14:10 | NUR ---
Discharge instructions reviewed with patient/family. Patient receptive and verbalizes understanding. Follow-up care arranged. Written instructions given to patient/family. CARRIE TAYLOR.
== END 2018-09-12 14:10 | disposition home or self-care (01) | DRG 194 ==
LOC: ED 12:17 → EDHOLD 13:09 → 4E 13:09
PROVIDERS: Emergency Medicine; Internal Medicine; Registered Nurse; Student in an Organized Health Care Education/Training Program; ADMIT Internal Medicine
DX: J18.9 Pneumonia, unspecified organism (principal); I50.32 Chronic diastolic (congestive) heart failure; E44.0 Moderate protein-calorie malnutrition; J44.1 Chronic obstructive pulmonary disease with (acute) exacerbation; I13.0 Hypertensive heart and chronic kidney disease with heart failure and stage 1 through stage 4 chronic kidney disease, or unspecified chronic kidney disease; J45.901 Unspecified asthma with (acute) exacerbation; Z68.41 Body mass index [BMI] 40.0-44.9, adult; K21.9 Gastro-esophageal reflux disease without esophagitis; N18.3 Chronic kidney disease, stage 3 (moderate); I25.10 Atherosclerotic heart disease of native coronary artery without angina pectoris; E55.9 Vitamin D deficiency, unspecified; E66.01 Morbid (severe) obesity due to excess calories; E78.00 Pure hypercholesterolemia, unspecified; Z95.1 Presence of aortocoronary bypass graft; Z88.5 Allergy status to narcotic agent; I25.2 Old myocardial infarction; Z90.49 Acquired absence of other specified parts of digestive tract; Z82.49 Family history of ischemic heart disease and other diseases of the circulatory system; Z83.3 Family history of diabetes mellitus; Z80.9 Family history of malignant neoplasm, unspecified; Z79.82 Long term (current) use of aspirin

== ENCOUNTER → 2019-01-29 | Outpatient (CLI) | payer OTHER ==
[~2019-01-29] MED LIST changes: +ATORVASTATIN CA40 M1 PO; +IMDUR SA30 MG PO; +LOSARTAN POTASS50 M1 PO; +METOPROLOL SUCC50 M1 PO; +ZITHROMAX500 MG PO
== END | disposition home or self-care (01) ==
LOC: RESCLI 00:45
DX: I25.10 Atherosclerotic heart disease of native coronary artery without angina pectoris (principal); J96.11 Chronic respiratory failure with hypoxia; E78.00 Pure hypercholesterolemia, unspecified; E66.9 Obesity, unspecified; K21.9 Gastro-esophageal reflux disease without esophagitis; I11.0 Hypertensive heart disease with heart failure; I50.32 Chronic diastolic (congestive) heart failure; M17.0 Bilateral primary osteoarthritis of knee; E11.65 Type 2 diabetes mellitus with hyperglycemia; G62.9 Polyneuropathy, unspecified; Z79.899 Other long term (current) drug therapy

== ENCOUNTER → 2019-03-01 | Outpatient (CLI) | payer OTHER ==
[2019-03-01 08:51] LABS: BASO % 0.2 % (0.0-1.0); EOS % 0.2 % (1.0-4.0); LYMPH # 1.8 10*3/uL (1.3-4.4); LYMPH % 18.8 % (27.0-41.0); MEAN CELL VOLUME 89.4 fl (80.0-94.0); MEAN CORPUSCULAR HGB 25.5 pg (27.0-31.0); MEAN CORPUSCULAR HGB CONC 28.6 g/dl (33.0-37.0); MEAN PLATELET VOLUME 11.4 fl (9.6-12.3); MONO # 0.9 10*3/uL (0.1-1.0); MONO % 9.1 % (3.0-9.0); NEUT # 6.9 10*3/uL (2.3-7.9); NEUT % 71.3 % (47.0-73.0); PLATELET COUNT AUTOMATED 167 10*3/uL (130-400); RED BLOOD COUNT 5.48 10*6/uL (4.50-5.90); RED CELL DISTRI WIDTH 15.7 % (0-14.5); WHITE BLOOD COUNT 9.6 10*3/uL (4.8-10.8)
[2019-03-01 09:22] LABS: ALBUMIN 2.9 gm/dl (3.1-4.5); BUN 26 mg/dl (7-24); CHLORIDE 106 mmol/L (98-107); SODIUM 144 mmol/L (136-145)
[2019-03-01 09:34] LABS: ALKALINE PHOSPHATASE 59 U/L (45-117); CHOLESTEROL 117 mg/dL (<200); CREATININE 1.14 mg/dL (0.70-1.30); HDL CHOLESTEROL 45 mg/dl (40-60); LDL CHOLESTEROL 46 mg/dL (9-159); SGOT/AST 11 IU/L (3-35); SGPT/ALT 10 U/L (12-78); TOTAL PROTEIN 6.7 gm/dL (6.4-8.2); TRIGLYCERIDES 130 mg/dl (<150); VLDL CHOLESTEROL 26 mg/dL (6-40)
[2019-03-01 10:42] LABS: FREE T4 0.76 ng/dl (0.76-1.46)
== END | disposition home or self-care (01) ==
LOC: LAB 07:24
PROVIDERS: Internal Medicine
DX: I25.10 Atherosclerotic heart disease of native coronary artery without angina pectoris (principal); E11.65 Type 2 diabetes mellitus with hyperglycemia; I10 Essential (primary) hypertension

== ENCOUNTER → 2019-03-06 | Outpatient (CLI) | payer OTHER | END | disposition home or self-care (01) | LOC: RESCLI 00:52 | DX: E11.9 Type 2 diabetes mellitus without complications (principal); I25.10 Atherosclerotic heart disease of native coronary artery without angina pectoris; J96.11 Chronic respiratory failure with hypoxia; E66.9 Obesity, unspecified; K21.9 Gastro-esophageal reflux disease without esophagitis; I11.0 Hypertensive heart disease with heart failure; I50.32 Chronic diastolic (congestive) heart failure; M17.0 Bilateral primary osteoarthritis of knee; G62.9 Polyneuropathy, unspecified; E78.5 Hyperlipidemia, unspecified; Z79.899 Other long term (current) drug therapy ==

== ENCOUNTER 2019-03-14 16:56 | Emergency (ER) | payer OTHER ==
[~2019-03-14] VITALS: Wt 158.8 kg
[2019-03-14 17:05] VITALS: BP 00/00
== END 2019-03-14 17:46 | disposition expired ==
LOC: ED 16:56
DX: I46.9 Cardiac arrest, cause unspecified (principal); I13.0 Hypertensive heart and chronic kidney disease with heart failure and stage 1 through stage 4 chronic kidney disease, or unspecified chronic kidney disease; N18.3 Chronic kidney disease, stage 3 (moderate); I50.32 Chronic diastolic (congestive) heart failure; I25.10 Atherosclerotic heart disease of native coronary artery without angina pectoris; K21.9 Gastro-esophageal reflux disease without esophagitis; E66.01 Morbid (severe) obesity due to excess calories; E78.00 Pure hypercholesterolemia, unspecified; I25.2 Old myocardial infarction; Z95.1 Presence of aortocoronary bypass graft; Z88.6 Allergy status to analgesic agent; Z79.899 Other long term (current) drug therapy; Z79.82 Long term (current) use of aspirin